=== PATIENT | male | born 1945 | race Caucasian/White ===

== ENCOUNTER 2018-06-10 15:27 | Emergency (ER) | payer MEDICARE ==
[~2018-06-10] VITALS: Ht 175.3 cm; Wt 63.5 kg
[2018-06-10] MEDS ORDERED: ATORVASTATIN CA20 MG ORAL (15:34)
[2018-06-10] MEDS ORDERED: MULTIVITAMINS1 EAC8 ORAL (15:34)
[2018-06-10] MEDS ORDERED: ARICEPT23 MG ORAL (15:34)
[2018-06-10] MEDS ORDERED: TRAMADOL HCL100 M2 ORAL (15:34)
[2018-06-10] MEDS ORDERED: SIMETHICONE80 M1 PO (15:34)
[2018-06-10] MEDS ORDERED: FLOMAX0.4 MG ORAL (15:34)
[2018-06-10] MEDS ORDERED: CARDIZEM60 MG ORAL (15:34)
[2018-06-10] MEDS ORDERED: ASPIRIN81 MG ORAL (15:34)
[2018-06-10] MEDS ORDERED: DUONEB 0.5-3(2.53 ML HHN (15:34)
[2018-06-10 15:40] VITALS: BP 118/69
--- NOTE | 2018-06-10 15:44 | NUR ---
ED Nurse Note: pt brought in by ambulance from [facility] s/p fall, per EMS report pt was found on floor by the morning nurse, no obvious deformity nor contusion nor open wound noted, noted discoloration on BUE. will cont monitor. VSS. resp even and unlabored on RA, AA&ox1. +pacemaker on left upper chest +pearl cath
--- NOTE | 2018-06-10 16:47 | Emergency Room Report ---
History of Present Illness General Chief Complaint: Multiple Trauma/Fall Source: Patient, Medical Record, EMS Present Illness HPI 72-year-old male presents ED for evaluation. Sent in from long-term facility status post fall. Fell and hit his head this morning. No LOC. Was sent in to have CT of head. Patient is at baseline mentation. Denies any headache. Denies any blurry vision nausea or vomiting. Not taking any blood thinners. No other aggravating relieving factors. Denies any other associated symptoms Allergies: Coded Allergies: No Known Allergies (Unverified , 06/10/18) Patient History Past Medical History: HTN Past Surgical History: pacemaker Pertinent Family History: none Social History: Denies: smoking, alcohol use, drug use Immunizations: UTD Reviewed Nursing Documentation: PMH: Agreed; PSxH: Agreed Nursing Documentation-PMH Past Medical History: No History, Except For Hx Pacemaker: Yes - right side Review of Systems All Other Systems: negative except mentioned in HPI Physical Exam Vital Signs Date Time Temp Pulse Resp B/P (MAP) Pulse Ox O2 Delivery O2 Flow Rate FiO2 06/10/18 15:17 98.1 98 16 121/66 98 Room Air Sp02 EP Interpretation: reviewed, normal General Appearance: no apparent distress, alert, GCS 15, non-toxic Head: normocephalic Eyes: bilateral eye normal inspection, bilateral eye PERRL, bilateral eye EOMI ENT: normal ENT inspection Neck: full range of motion, no bony tend, supple/symm/no masses Respiratory: chest non-tender, lungs clear, normal breath sounds, speaking full sentences Cardiovascular #1: regular rate, rhythm, no edema Gastrointestinal: normal inspection Rectal: deferred Genitourinary: no CVA tenderness Musculoskeletal: normal inspection Neurologic: alert, oriented x3, responsive, motor strength/tone normal, sensory intact, speech normal Psychiatric: normal inspection Skin: normal inspection Lymphatic: normal inspection Medical Decision Making Diagnostic Impression: Primary Impression: Head injury Qualified Codes: S09.90XA - Unspecified injury of head, initial encounter ER Course Hospital Course 72-year-old M presents ED s/p fall with head injury at Differential diagnoses include: skull fx, intracranial injury, concussion Clinical course Patient placed on stretcher. After initial history and physical I ordered CT head CT head shows no acute process. Patient at baseline mentation. No focal neurological deficits. Discussed case with PMD Dr. Nix; patient can be safely discharged back to long-term facility Diagnosis - head injury Stable and discharged to SNF. Followup with PMD. Return to ED if symptoms recur or worsen CT/MRI/US Diagnostic Results CT/MRI/US Diagnostic Results : Imaging Test Ordered: CT Head Impression no acute process Last Vital Signs Date Time Temp Pulse Resp B/P (MAP) Pulse Ox O2 Delivery O2 Flow Rate FiO2 06/10/18 15:40 98.1 98 16 118/69 100 Room Air Status: improved Disposition: XFER SNF Condition: Stable Patient Instructions: Head Injury, Adult, [id number] Edu Wise MD Jun 10, 2018 16:47
[2018-06-10 17:25] VITALS: BP 115/89
--- NOTE | 2018-06-10 17:25 | NUR ---
ED Nurse Note: ambulance personnel at the bedside for transport, pt cleared to be d/c per ERMD, pt discharge and aftercare instruction provided to ems, pt vss, no changes in neuro status, resp even and unlabored on RA, report given and endorsed care to ambulance staff.
--- NOTE | 2018-06-11 08:52 | Diagnostic Imaging Report ---
Indications: Head pain, status post fall Technique: Spiral acquisitions obtained through the brain. Angled axial and coronal 5 x 5 mm slices were reconstructed. Total dose length product 1506.28 mGycm. CTDI vol(s) 70.38 mGy. Dose reduction achieved using automated exposure control Comparison: None. Findings: . There is age-related enlargement of the ventricles and extra axial CSF spaces. There is periventricular deep white matter low-attenuation, consistent with chronic microvascular ischemic change. 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 This results in mild ex vacuo dilatation of the anterior body of the left lateral ventricle. Old lacunar infarct is also seen in the anterior right thalamus old infarct is seen in the left cerebellar peduncle. No acute intercranial hemorrhage nor edema. No mass effect nor midline shift. Normal portillo-white differentiation otherwise. Intact calvarium. Visualized orbits and sinuses are unremarkable. The mastoids are clear Impression: Negative for acute intracranial bleed or mass effect Old infarcts, as described Other chronic and age-related changes, as described This agrees with the preliminary interpretation provided overnight by [facility]. The CT scanner at [facility] is accredited by the [employer] and the scans are performed using protocols designed to limit radiation exposure to as low as reasonably achievable to attain images of sufficient resolution adequate for diagnostic evaluation.
== END 2018-06-10 17:25 ==
LOC: EDBD 15:27 → EMR 15:57
DX: S09.90XA Unspecified injury of head, initial encounter (principal); W19.XXXA Unspecified fall, initial encounter; Y92.129 Unspecified place in nursing home as the place of occurrence of the external cause; I10 Essential (primary) hypertension; Z95.0 Presence of cardiac pacemaker
CPT/HCPCS: 70450; 99284